=== PATIENT | female | born 1945 | race Caucasian/White ===

== ENCOUNTER 2021-08-25 11:07 | Outpatient (CLI) | payer MEDICARE, BC | END 2021-08-25 11:08 | disposition home or self-care (01) | LOC: CSHMAMMO 11:07 | PROVIDERS: ATTEND Obstetrics & Gynecology | DX: Z12.31 Encounter for screening mammogram for malignant neoplasm of breast (principal); N63.21 Unspecified lump in the left breast, upper outer quadrant; Z80.3 Family history of malignant neoplasm of breast | CPT/HCPCS: 77063; 77067 ==

== ENCOUNTER 2021-09-01 13:07 | Outpatient (CLI) | payer MEDICARE, BC | END 2021-09-01 13:08 | disposition home or self-care (01) | LOC: CSHMAMMO 13:07 | PROVIDERS: ATTEND Obstetrics & Gynecology | DX: N63.20 Unspecified lump in the left breast, unspecified quadrant (principal); R92.8 Other abnormal and inconclusive findings on diagnostic imaging of breast | CPT/HCPCS: 77065; G0279 ==

== ENCOUNTER 2023-01-25 10:59 | Outpatient (CLI) | payer MEDICARE, BC | END 2023-01-25 11:00 | disposition home or self-care (01) | LOC: CSHMAMMO 10:59 | PROVIDERS: ATTEND Obstetrics & Gynecology | DX: Z12.31 Encounter for screening mammogram for malignant neoplasm of breast (principal) | CPT/HCPCS: 77063; 77067 ==

== ENCOUNTER 2024-07-18 11:32 | Outpatient (CLI) | payer MEDICARE, BC | END 2024-07-18 11:33 | disposition home or self-care (01) | LOC: CSHMAMMO 11:32 | PROVIDERS: ATTEND Family Medicine | DX: Z12.31 Encounter for screening mammogram for malignant neoplasm of breast (principal); Z80.3 Family history of malignant neoplasm of breast | CPT/HCPCS: 77063; 77067 ==

== ENCOUNTER 2025-08-05 11:28 | Outpatient (CLI) | payer MEDICARE, BC | END 2025-08-05 11:29 | disposition home or self-care (01) | LOC: CSHMAMMO 11:28 | PROVIDERS: ATTEND Family Medicine | DX: Z12.31 Encounter for screening mammogram for malignant neoplasm of breast (principal); Z80.3 Family history of malignant neoplasm of breast | CPT/HCPCS: 77063; 77067 ==